=== PATIENT | male | born 1960 | race African-American/Black ===

== ENCOUNTER 2017-01-31 13:46 | Emergency (ER) | payer OTHER ==
[~2017-01-31] VITALS: Ht 170.2 cm; Wt 80.0 kg
[2017-01-31 14:00] VITALS: BP 156/102; PULSE 82; RESP 16; TEMP 98.3; O2SAT 98
[2017-01-31] MEDS ORDERED: NAPR500 PO (16:11)
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
== END 2017-01-31 16:26 | disposition home or self-care (01) ==
LOC: NEPK 13:46
DX: S83.91XA Sprain of unspecified site of right knee, initial encounter (principal); S39.012A Strain of muscle, fascia and tendon of lower back, initial encounter; I10 Essential (primary) hypertension; V18.4XXA Pedal cycle driver injured in noncollision transport accident in traffic accident, initial encounter
CPT/HCPCS: 99282